=== PATIENT | female | born 1975 | race Caucasian/White ===

== ENCOUNTER 2017-12-27 10:33 | Emergency (ER) | payer OTHER ==
[~2017-12-27] VITALS: Ht 160 cm; Wt 65.8 kg
[~2017-12-27 10:33] MED LIST: ALBU90OI INH; ESCI10; HYDACE5 PO; MECL25; MECL25 PO; NAPR550 PO; OXYACE5T PO; PROM25 PO; Pepcid40 MG PO; Permethrin60 GM TP; SILSUL1TC TOP
[2017-12-27] MEDS ORDERED: Cipro500 MG PO (11:24)
[2017-12-27] MEDS ORDERED: Zovirax800 MG PO (11:24)
[2017-12-27 11:25] LABS: Specimen Source URINE
[2017-12-28 03:28] LABS: Source Urine
[2017-12-28 06:35] LABS: HCV Non Reactive (NR)
== END 2017-12-27 11:35 | disposition home or self-care (01) ==
LOC: ER 10:33
PROVIDERS: Psychiatry & Neurology Psychiatry
DX: N39.0 Urinary tract infection, site not specified (principal); Z88.0 Allergy status to penicillin; F17.200 Nicotine dependence, unspecified, uncomplicated
CPT/HCPCS: 80074; 81025; 86592; 87389; 87491; 87591; 99283

== ENCOUNTER 2018-01-16 18:39 | Emergency (ER) | payer OTHER ==
[~2018-01-16] VITALS: Ht 160 cm; Wt 68.0 kg
[~2018-01-16 18:39] MED LIST changes: +Cipro500 MG PO; +Zovirax800 MG PO
[2018-01-16] MEDS ORDERED: TRIA15CR3 TOP (19:18)
== END 2018-01-16 19:30 | disposition home or self-care (01) ==
LOC: ER 18:39
DX: L25.9 Unspecified contact dermatitis, unspecified cause (principal); Z88.0 Allergy status to penicillin; F17.210 Nicotine dependence, cigarettes, uncomplicated
CPT/HCPCS: 99282

== ENCOUNTER 2018-05-06 12:18 | Emergency (ER) | payer OTHER ==
[~2018-05-06] VITALS: Ht 157.5 cm; Wt 59.0 kg
[~2018-05-06 12:18] MED LIST changes: +TRIA15CR3 TOP
[2018-05-06] MEDS ORDERED: Bactrim Ds Tab1 EACH PO (13:37)
[2018-05-06] MEDS ORDERED: CEPH500 PO (13:37)
== END 2018-05-06 14:26 | disposition home or self-care (01) ==
LOC: ER 12:18
DX: L03.115 Cellulitis of right lower limb (principal); Z88.0 Allergy status to penicillin
CPT/HCPCS: 73562-RT; 99283

== ENCOUNTER 2020-01-17 11:27 | Emergency (ER) | payer OTHER ==
[~2020-01-17] VITALS: Ht 160 cm; Wt 72.6 kg
[~2020-01-17 11:27] MED LIST changes: +Bactrim Ds Tab1 EACH PO; +CEPH500 PO
== END 2020-01-17 12:08 | disposition home or self-care (01) ==
LOC: ER 11:27
DX: N63.20 Unspecified lump in the left breast, unspecified quadrant (principal); N63.10 Unspecified lump in the right breast, unspecified quadrant; F17.210 Nicotine dependence, cigarettes, uncomplicated
CPT/HCPCS: 99283

== ENCOUNTER 2020-07-01 12:08 | Emergency (ER) | payer OTHER ==
[~2020-07-01] VITALS: Ht 160 cm; Wt 61.2 kg
[~2020-07-01 12:08] MED LIST changes: +Zofran4 MG PO
[2020-07-01 12:45] LABS: BASOPHILS ABSOLUTE AUTO 0.03 K/mm3 (0.00-0.23); BASOPHILS PERCENT AUTO 0 % (0-2); EOSINOPHILS ABSOLUTE AUTO 0.18 K/mm3 (0.00-0.68); EOSINOPHILS PERCENT AUTO 2 % (0-6); Hematocrit 40.8 % (33.0-51.0); Hemoglobin 13.1 g/dL (11.5-16.0); IMMATURE GRAN ABSOLUTE AUTO 0.02 K/mm3 (0.00-0.10); IMMATURE GRAN PERCENT AUTO 0 % (0-1); LYMPHOCYTES ABSOLUTE AUTO 2.15 K/mm3 (0.84-5.20); LYMPHOCYTES PERCENT AUTO 22 % (21-46); MONOCYTES ABSOLUTE AUTO 0.73 K/mm3 (0.16-1.47); MONOCYTES PERCENT AUTO 8 % (4-13); Mean Corpuscular HGB 30.5 pg (26.0-34.0); Mean Corpuscular HGB Conc 32.1 g/dL (31.5-36.5); Mean Corpuscular Volume 95 fL (80-100); Mean Platelet Volume 10.8 fL (9.1-12.4); NEUTROPHILS ABSOLUTE AUTO 6.51 K/mm3 (1.96-9.15); NEUTROPHILS PERCENT AUTO 68 % (41-73); Platelet Count 292 K/mm3 (150-400); RDW Coefficient Variation 13.8 % (11.7-14.2); White Blood Cell Count 9.62 K/mm3 (4.00-11.30)
[2020-07-01 13:09] LABS: Alanine Aminotransfer (ALT/SGP 37 U/L (12-78); Albumin, Blood 3.3 g/dL (3.4-5.0); Albumin/Globulin Ratio 0.8 (0.8-1.8); Alk Phos 65 U/L (50-136); Anion Gap 6 mmol/L (6-16); Aspartate Aminotrans (AST/SGOT 16 U/L (12-37); Bilirubin, Total 0.2 mg/dL (0.1-1.0); Blood Urea Nitrogen 14 mg/dL (8-24); Bun/Creatinine Ratio 22.4 (12.0-20.0); CO2, Blood 24 mmol/L (21-32); Calcium, Blood 8.3 mg/dL (8.5-10.1); Chloride, Blood 109 mmol/L (98-108); Creatinine, Blood 0.63 mg/dL (0.40-1.00); Globulin, Blood 4.1 g/dL (2.2-4.0); Glomerular Filtration Rate >60 (60-); Glucose, Blood 98 mg/dL (70-99); Potassium, Blood 3.7 mmol/L (3.5-5.5); Sodium, Blood 139 mmol/L (136-145); Total Protein, Blood 7.4 g/dL (6.4-8.2)
[2020-07-01] MEDS ORDERED: Norco 10-325 T1 EACH PO (13:32)
[2020-07-01] MEDS ORDERED: Norco 5-325 Ta1 EACH PO (14:52)
== END 2020-07-01 13:44 | disposition home or self-care (01) ==
LOC: ER 12:08
PROVIDERS: Physician Assistant
DX: R07.89 Other chest pain (principal); R10.12 Left upper quadrant pain; F17.210 Nicotine dependence, cigarettes, uncomplicated; Z88.0 Allergy status to penicillin; V86.59XA Driver of other special all-terrain or other off-road motor vehicle injured in nontraffic accident, initial encounter; Y92.410 Unspecified street and highway as the place of occurrence of the external cause
CPT/HCPCS: 71260; 74177; 80053; 83690; 85025; 99284-25; Q9967

== ENCOUNTER 2021-02-05 03:06 | Emergency (ER) | payer OTHER ==
[~2021-02-05] VITALS: Ht 160 cm; Wt 61.2 kg
[~2021-02-05 03:06] MED LIST changes: +Diflucan150 MG PO; +Norco 10-325 T1 EACH PO; +Norco 5-325 Ta1 EACH PO; +Vibramycin100 MG PO
== END 2021-02-05 03:50 | disposition home or self-care (01) ==
LOC: ER 03:06
DX: L03.116 Cellulitis of left lower limb (principal); F17.210 Nicotine dependence, cigarettes, uncomplicated; Z88.0 Allergy status to penicillin
CPT/HCPCS: 99283; A9270

== ENCOUNTER 2023-04-05 00:48 | Emergency (ER) | payer OTHER ==
[~2023-04-05] VITALS: Ht 160 cm; Wt 90.7 kg
[~2023-04-05 00:48] MED LIST changes: +BENZ100A PO
[2023-04-05 01:05] VITALS: BP 139/74
[2023-04-05] MEDS ORDERED: Mupirocin22 GM TOP (02:11)
== END 2023-04-05 02:40 | disposition home or self-care (01) ==
LOC: ER 00:48
DX: S91.311A Laceration without foreign body, right foot, initial encounter (principal); S90.412A Abrasion, left great toe, initial encounter; Z88.0 Allergy status to penicillin; Z87.891 Personal history of nicotine dependence; W01.110A Fall on same level from slipping, tripping and stumbling with subsequent striking against sharp glass, initial encounter
CPT/HCPCS: 73630; A9270

== ENCOUNTER 2023-06-13 10:48 | Day surgery (SDC) | payer OTHER ==
[~2023-06-13] VITALS: Ht 160 cm; Wt 88.8 kg
[~2023-06-13 10:48] MED LIST changes: +Mupirocin22 GM TOP
[2023-06-13 16:04] VITALS: BP 110/68
== END 2023-06-13 16:20 | disposition home or self-care (01) ==
LOC: ORSCSDS 10:48
PROVIDERS: Podiatrist Foot & Ankle Surgery
PROC: 0JCQ0ZZ Extirpation of Matter from Right Foot Subcutaneous Tissue and Fascia, Open Approach (ICD-10-PCS; principal; 2023-06-13 12:30)
DX: M79.5 Residual foreign body in soft tissue (principal); M79.671 Pain in right foot; Z87.891 Personal history of nicotine dependence; E66.9 Obesity, unspecified; Z68.34 Body mass index [BMI] 34.0-34.9, adult
CPT/HCPCS: A9270; J0171; J0690; J1100; J2250; J2405; J2704; J2765; J2795; J3010; J7120

== ENCOUNTER → 2024-05-28 | Outpatient (CLI) | payer OTHER ==
[2024-05-28 11:54] LABS: Bacterial Vaginosis PCR Negative (NEGATIVE); Candida Group, PCR NOT DETECTED (NOT DETECT); Candida glabrata-krusei, PCR NOT DETECTED (NOT DETECT)
== END | disposition home or self-care (01) ==
LOC: LAB 09:33 → LAB SHORT 09:33
PROVIDERS: Advanced Practice Midwife
DX: N76.0 Acute vaginitis (principal)
CPT/HCPCS: 87481; 87661; 87801

== ENCOUNTER 2024-09-18 07:14 | Day surgery (SDC) | payer OTHER ==
[~2024-09-18 07:14] MED LIST changes: +Amphetamine Sal30 MG PO; +EUTHYROX50 MCG PO; +Lidocaine HCl 2% 20 ML MDV ONE; +PANT40 PO; +propofoL 50 ML IV ONE
[2024-09-18] MEDS ORDERED: NS 500 ML IV SCH (08:45)
--- NOTE | 2024-09-18 10:10 | NUR ---
0842: Pt ambulatory to [facility] for procedure with Dr. Pinzon. Pt reports not being properly cleaned out for colonoscopy this AM. Pt brought back to bay [facility], while this RN discussed outcome of pts cleanout with Dr. Pinzon in Endo Room 1. Per Dr. Pinzon, okay to proceed with procedure after this RN completes a tap water enema and ensures stool is clear. This RN returned to bay 1 to discuss plans with pt. Pt states she would like to proceed with enema and go through with the procedure if able. This RN gave pt dressing instructions and provided privacy by shutting curtains. While pt was getting dressed, this RN prepared Endo Room 2 for administering said enema in privacy. Upon returning to pt, no pt to be found. This RN and charge nurse checked Day Surgery/hallways/etc. This RN called pt and her life partner, no responses. This RN also checked in with [facility] to ensure if pt returns to department we will be notified. Pt left department without notifying staff. Dr Pinzon and Endo Team notified.
== END 2024-09-18 23:00 | disposition home or self-care (01) ==
LOC: ORSCMMR 07:14 → ORD 09:00 → ORSCMMR 09:00
DX: K22.70 Barrett's esophagus without dysplasia (principal); Z80.0 Family history of malignant neoplasm of digestive organs; Z53.9 Procedure and treatment not carried out, unspecified reason
CPT/HCPCS: J2704

== ENCOUNTER 2025-04-07 18:20 | Emergency (ER) | payer OTHER ==
[~2025-04-07] VITALS: Ht 160 cm; Wt 90.7 kg
[~2025-04-07 18:20] MED LIST changes: -Lidocaine HCl 2% 20 ML MDV ONE; -propofoL 50 ML IV ONE
[2025-04-07 19:16] LABS: BASOPHILS ABSOLUTE AUTO 0.03 K/mm3 (0.00-0.23); BASOPHILS PERCENT AUTO 1 % (0-2); EOSINOPHILS ABSOLUTE AUTO 0.08 K/mm3 (0.00-0.68); EOSINOPHILS PERCENT AUTO 1 % (0-6); Hematocrit 44.7 % (33.0-51.0); Hemoglobin 14.9 g/dL (11.5-16.0); IMMATURE GRAN ABSOLUTE AUTO 0.01 K/mm3 (0.00-0.10); IMMATURE GRAN PERCENT AUTO 0 % (0-1); LYMPHOCYTES ABSOLUTE AUTO 1.23 K/mm3 (0.84-5.20); LYMPHOCYTES PERCENT AUTO 19 % (21-46); MONOCYTES ABSOLUTE AUTO 0.49 K/mm3 (0.16-1.47); MONOCYTES PERCENT AUTO 8 % (4-13); Mean Corpuscular HGB 30.8 pg (26.0-34.0); Mean Corpuscular HGB Conc 33.3 g/dL (31.5-36.5); Mean Corpuscular Volume 92 fL (80-100); Mean Platelet Volume 11.1 fL (9.1-12.4); NEUTROPHILS ABSOLUTE AUTO 4.64 K/mm3 (1.96-9.15); NEUTROPHILS PERCENT AUTO 72 % (41-73); Platelet Count 263 K/mm3 (150-400); RDW Coefficient Variation 12.8 % (11.7-14.2); RDW Standard Deviation 43.5 fL (35.1-46.3); Red Blood Cell Count 4.84 M/mm3 (3.80-5.20); White Blood Cell Count 6.48 K/mm3 (4.00-11.30)
[2025-04-07 19:28] LABS: Albumin, Blood 3.9 g/dL (3.4-5.0); Albumin/Globulin Ratio 1.2 (0.8-1.8); Bilirubin, Total 0.3 mg/dL (0.1-1.0); Bun/Creatinine Ratio 14.5 (12.0-20.0); Calcium, Blood 9.2 mg/dL (8.5-10.1); Creatinine, Blood 0.83 mg/dL (0.40-1.00); Globulin, Blood 3.2 g/dL (2.2-4.0); Potassium, Blood 3.8 mmol/L (3.5-5.5); Total Protein, Blood 7.1 g/dL (6.4-8.2)
[2025-04-07] MEDS ORDERED: ADDERALL (20:42)
[2025-04-07 21:32] LABS: Influenza A, PCR NEGATIVE (NEGATIVE); Influenza B, PCR NEGATIVE (NEGATIVE); Resp Syncytial Virus, PCR NEGATIVE (NEGATIVE); SARS-Cov-2 (COVID-19) PCR, MMC NEGATIVE (NEGATIVE)
[2025-04-07] MEDS ORDERED: Ketorolac Tromethamine 15mg Vial IV ONE (22:10)
[2025-04-07] MEDS ORDERED: Pseudoephedrine HCl 30 MG Tab PO ONE (22:10)
[2025-04-07 22:39] VITALS: BP 144/92
== END 2025-04-07 22:39 | disposition home or self-care (01) ==
LOC: ER 18:20
PROVIDERS: Student in an Organized Health Care Education/Training Program
DX: J06.9 Acute upper respiratory infection, unspecified (principal); B34.9 Viral infection, unspecified; K21.9 Gastro-esophageal reflux disease without esophagitis; E03.9 Hypothyroidism, unspecified; F17.210 Nicotine dependence, cigarettes, uncomplicated; Z88.0 Allergy status to penicillin; Z91.048 Other nonmedicinal substance allergy status
CPT/HCPCS: 0241U; 71046; 80053; 85025; 93005; 93010; 96374; 99284-25; A9270; J1885

== ENCOUNTER 2025-08-06 05:24 | Emergency (ER) | payer OTHER ==
[~2025-08-06] VITALS: Ht 160 cm; Wt 90.7 kg
[~2025-08-06 05:24] MED LIST changes: +ADDERALL
[2025-08-06] MEDS ORDERED: Ketorolac Tromethamine 30mg Vial IM ONE (05:30)
[2025-08-06] MEDS ORDERED: Prochlorperazine Edisylate 10 mg Vial IM ONE (05:30)
[2025-08-06] MEDS ORDERED: Metoclopramide HCl 5MG / ML 2ML Vial IM ONE (06:45)
[2025-08-06 08:48] VITALS: BP 107/64
== END 2025-08-06 08:49 | disposition home or self-care (01) ==
LOC: ER 05:24
DX: R51.9 Headache, unspecified (principal); K21.9 Gastro-esophageal reflux disease without esophagitis; F17.210 Nicotine dependence, cigarettes, uncomplicated; Z79.899 Other long term (current) drug therapy; Z88.0 Allergy status to penicillin; Z91.048 Other nonmedicinal substance allergy status
CPT/HCPCS: 70450; 96372; 99284-25; J0780; J1885; J2765